=== PATIENT | female | born 1995 | race Two or more races ===

== ENCOUNTER 2020-01-09 17:41 | Outpatient (CLI) | payer MEDICAID | END 2020-01-09 17:42 | disposition home or self-care (01) | LOC: COV 17:41 | PROVIDERS: ATTEND Family Medicine | DX: Z20.828 Contact with and (suspected) exposure to other viral communicable diseases (principal) ==

== ENCOUNTER 2022-05-22 19:13 | Outpatient (CLI) | payer BC ==
--- NOTE | 2022-05-23 10:06 | Ultrasound Report ---
PROCEDURE: Head or Neck Soft Tissue INDICATIONS: ENLARDGED THYROID TECHNIQUE: Real-time scanning was performed of the thyroid gland, with image documentation. COMPARISON: None FINDINGS: Right: Thyroid lobe measures 4.9 x 1.6 x 1.5 cm, and is homogeneous in echotexture. Left: Thyroid lobe measures 5.1 x 1.3 x 1.4 cm, and is homogenous in echotexture. Isthmus: 2.6 mm thick. Nodule number: One Location: Lateral aspect of mid to lower pole left thyroid lobe Size: 0.3 cm. Composition: Cystic Echogenicity: Anechoic Shape: wider than tall. Margins: Smooth Echogenic foci: None Total points: 0 ACR TI-RADS category: Benign Enlarged bilateral level 2 lymph nodes are seen measures 2.3 x 1.1 cm in size on the right side and 2 .8 x 0.9 cm in size on the left side. IMPRESSION: 1. Benign appearing cystic nodule in lateral left thyroid lobe. No suspicious appearing thyroid nodul e. Thyroid gland is normal in size. 2. Enlarged bilateral level 2 lymph nodes and may represent reactive inflammatory lymphadenopathy sug gests clinical correlation. ACR TI-RADS definitions and recommendations: TI-RADS 1 (benign): 0 points. FNA not needed. TI-RADS 2 (not suspicious): 2 points. FNA not needed. TI-RADS 3 (mildly suspicious): 3 points. "FNA if 2.5 cm or larger, follow up if 1.5 cm or larger (at 1, 3, and 5 years). TI-RADS 4 (moderately suspicious): 4-6 points. "FNA if 1.5 cm or larger, follow up if 1 cm or larger (at 1, 2, 3, and 5 years). TI-RADS 5 (highly suspicious): 7 points or more. "FNA if 1 cm or larger, follow up if 0.5 cm or larger (every year for 5 years). Reviewed by: Gomez Spivey MD on 05/23/2022 10:05 AM PST Approved by: Gomez Spivey MD on 05/23/2022 10:05 AM PST Station ID: [id number]
== END 2022-05-22 19:14 | disposition home or self-care (01) ==
LOC: DI 19:13
PROVIDERS: ATTEND Physician Assistant
DX: E04.1 Nontoxic single thyroid nodule (principal); R59.0 Localized enlarged lymph nodes